=== PATIENT | male | born 2000 | race Caucasian/White ===

== ENCOUNTER 2021-03-27 10:51 | Emergency (ER) | payer OTHER ==
[~2021-03-27] VITALS: Ht 180.3 cm; Wt 88.6 kg
[2021-03-27 13:46] LABS: HEMATOCRIT 51.7 % (42.0-52.0); MEAN CORPUSCULAR HEMOGLOBIN 29.5 pg (27.0-33.0); MEAN CORPUSCULAR HGB CONC 34.4 g/dl (32.0-36.5); MEAN CORPUSCULAR VOLUME 85.7 fl (80.0-96.0); PLATELET COUNT, AUTOMATED 327 10^3/uL (150-450); RED BLOOD COUNT 6.03 10^6/uL (4.30-6.10); WHITE BLOOD COUNT 5.6 10^3/uL (4.0-10.0)
[2021-03-27 13:51] LABS: HEMOGLOBIN 17.8 g/dl (13.5-17.5)
[2021-03-27 14:28] LABS: ACETAMINOPHEN LEVEL < 2.0 UG/ML (10.0-30.0); ALBUMIN 4.5 GM/DL (3.2-5.2); ALT/SGPT 16 U/L (12-78); BILIRUBIN,DIRECT 0.2 MG/DL (0.0-0.2); BILIRUBIN,TOTAL 0.8 MG/DL (0.2-1.0); BLOOD UREA NITROGEN 13 MG/DL (7-18); CALCIUM LEVEL 9.8 MG/DL (8.5-10.1); CARBON DIOXIDE LEVEL 29 MEQ/L (21-32); CHLORIDE LEVEL 107 MEQ/L (98-107); CREATININE FOR GFR 1.12 MG/DL (0.70-1.30); ETHYL ALCOHOL (ETHANOL) < 0.003 % (0.000-0.010); GLUCOSE, FASTING 91 MG/DL (70-100); POTASSIUM SERUM 4.2 MEQ/L (3.5-5.1); SALICYLATE LEVEL < 1.7 MG/DL (5.0-30.0); SODIUM LEVEL 142 MEQ/L (136-145); TOTAL PROTEIN 7.9 GM/DL (6.4-8.2)
[2021-03-27 15:20] LABS: AMPHETAMINES LEVEL URINE NEGATIVE (NEGATIVE); BARBITURATES URINE NEGATIVE (NEGATIVE); BENZODIAZEPINES URINE NEGATIVE (NEGATIVE); CANNABINOIDS URINE NEGATIVE (NEGATIVE); COCAINE METABOLITE URINE NEGATIVE (NEGATIVE); METHADONE URINE NEGATIVE (NEGATIVE); OPIATES URINE NEGATIVE (NEGATIVE); PHENCYCLIDINE URINE NEGATIVE (NEGATIVE)
--- NOTE | 2021-03-27 18:44 | ECGEPIP ---
[facility] - ED Test Date: 2021-03-27 Pat Name: SYDNEY DON Department: Room: - Gender: Male Pediatric Psychiatrist: terra : 2000 Requested By: Doretha Tejada Order Number: [id number] Reading MD: Michael Frederick Measurements Intervals [place] Rate: 64 P: 65 ID: [id number] QRS: 98 QRSD: 88 T: 57 QT: 350 QTc: 361 Interpretive Statements Normal sinus rhythm Rightward axis NO PRIORS FOR COMPARISON Electronically Signed on 03-27-2021 18:43:54 EST by Michael Frederick
[2021-03-27 23:40] LABS: RSV AMPLIFICATION NEGATIVE (NEGATIVE)
[2021-03-28] MEDS ORDERED: MULTCHW12 PO (00:52)
[2021-03-28 03:22] VITALS: BP 117/55
== END 2021-03-28 04:25 ==
LOC: M ED 10:51
DX: R45.851 Suicidal ideations (principal); F17.200 Nicotine dependence, unspecified, uncomplicated

== ENCOUNTER 2021-05-22 19:10 | Emergency (ER) | payer OTHER ==
[~2021-05-22] VITALS: Ht 180.3 cm; Wt 81.8 kg
[~2021-05-22 19:10] MED LIST: MULTCHW12 PO
[2021-05-22] MEDS ORDERED: GABA-282 PO (19:46)
[2021-05-22] MEDS ORDERED: LEXA1TAB PO ×2 (19:46→22:07)
[2021-05-22 21:30] LABS: RSV AMPLIFICATION NEGATIVE (NEGATIVE)
[2021-05-22 22:01] LABS: HEMATOCRIT 45.2 % (42.0-52.0); HEMOGLOBIN 15.9 g/dl (13.5-17.5); MEAN CORPUSCULAR HGB CONC 35.2 g/dl (32.0-36.5); MEAN CORPUSCULAR VOLUME 85.3 fl (80.0-96.0); PLATELET COUNT, AUTOMATED 302 10^3/uL (150-450)
[2021-05-22] MEDS ORDERED: GABA-1171 PO (22:07)
[2021-05-22] MEDS ORDERED: D31000TA2 PO (22:08)
[2021-05-22] MEDS ORDERED: HOME MED LIST COMPLETE! XX SCH (22:15)
[2021-05-22 22:39] LABS: ACETAMINOPHEN LEVEL < 2.0 UG/ML (10.0-30.0); ALT/SGPT 20 U/L (12-78); BILIRUBIN,DIRECT 0.1 MG/DL (0.0-0.2); BILIRUBIN,TOTAL 0.3 MG/DL (0.2-1.0); BLOOD UREA NITROGEN 14 MG/DL (7-18); CALCIUM LEVEL 8.7 MG/DL (8.5-10.1); CARBON DIOXIDE LEVEL 30 MEQ/L (21-32); CHLORIDE LEVEL 105 MEQ/L (98-107); CREATININE FOR GFR 0.92 MG/DL (0.70-1.30); ETHYL ALCOHOL (ETHANOL) < 0.003 % (0.000-0.010); GLUCOSE, FASTING 72 MG/DL (70-100); SALICYLATE LEVEL < 1.7 MG/DL (5.0-30.0); SODIUM LEVEL 141 MEQ/L (136-145); TOTAL PROTEIN 6.9 GM/DL (6.4-8.2)
[2021-05-23 00:14] LABS: AMPHETAMINES LEVEL URINE NEGATIVE (NEGATIVE); BARBITURATES URINE NEGATIVE (NEGATIVE); BENZODIAZEPINES URINE NEGATIVE (NEGATIVE); CANNABINOIDS URINE NEGATIVE (NEGATIVE); COCAINE METABOLITE URINE NEGATIVE (NEGATIVE); METHADONE URINE NEGATIVE (NEGATIVE); OPIATES URINE NEGATIVE (NEGATIVE); PHENCYCLIDINE URINE NEGATIVE (NEGATIVE)
[2021-05-23 03:12] VITALS: BP 123/61
== END 2021-05-23 03:38 | disposition home or self-care (01) ==
LOC: M ED 19:10
DX: F43.0 Acute stress reaction (principal); F32.A Depression, unspecified; Z56.3 Stressful work schedule